=== PATIENT | male | born 1975 | race Caucasian/White ===

== ENCOUNTER 2017-09-14 08:58 | Day surgery (SDC) | payer BC ==
[~2017-09-14 08:58] MED LIST: ATROPINE 1 MG/10 ML SYRINGE IV; DIPHENHYDRAMINE 50 MG INJ IV; EPHEDrine SULFATE 50 MG/5 ML SYG IV; FENTAnyl 50 MCG/ML VIAL IV; HYDROmorphONE (0.2 MG/ML) 10ML SYG IV; LABETALOL HCL 20MG INJ IV; MEPERIDINE 25 MG INJ IV; MIDAZOLAM 1 MG/ML 2 ML INJ IV; ONDANSETRON 4 MG INJ IV; OXYCODONE/ACETAMINOPHEN (5/325) TAB PO; hydrALAzine 20 MG INJ IV; morphine (1 MG/ML) 10ML SYRINGE IV
[2017-09-14] MEDS ORDERED: LIDOCAINE 1% (MPF) 30 ML INJ (11:35)
[2017-09-14] MEDS ORDERED: BUPIVACAINE 0.5% (SDV) 30 ML INJ (11:35)
[2017-09-14] MEDS: POLYMYXIN/BACITRACIN 1L IRRIG IRR (12:23)
[2017-09-14] MEDS ORDERED: POLYMYXIN/BACITRACIN 1L IRRIG (14:26)
[2017-09-14] MEDS: OXYCODONE/ACETAMINOPHEN (5/325) TAB PO (15:17)
== END 2017-09-14 16:30 | disposition home or self-care (01) ==
LOC: SDS 08:58
DX: S62.623B Displaced fracture of middle phalanx of left middle finger, initial encounter for open fracture (principal); S64.02XA Injury of ulnar nerve at wrist and hand level of left arm, initial encounter; S66.123A Laceration of flexor muscle, fascia and tendon of left middle finger at wrist and hand level, initial encounter; S64.22XA Injury of radial nerve at wrist and hand level of left arm, initial encounter; X58.XXXA Exposure to other specified factors, initial encounter; Y93.89 Activity, other specified
CPT/HCPCS: 26356; 73140

== ENCOUNTER 2017-12-07 12:00 | Day surgery (SDC) | payer BC ==
[~2017-12-07 12:00] MED LIST changes: -ATROPINE 1 MG/10 ML SYRINGE IV; +CEFAZOLIN 2 GM/50 ML (PMX) 50 ML IVPB; -DIPHENHYDRAMINE 50 MG INJ IV; -EPHEDrine SULFATE 50 MG/5 ML SYG IV; -FENTAnyl 50 MCG/ML VIAL IV; -HYDROmorphONE (0.2 MG/ML) 10ML SYG IV; -LABETALOL HCL 20MG INJ IV; +LACTATED RINGER'S 1,000 ML IV*; -MEPERIDINE 25 MG INJ IV; -MIDAZOLAM 1 MG/ML 2 ML INJ IV; -ONDANSETRON 4 MG INJ IV; -OXYCODONE/ACETAMINOPHEN (5/325) TAB PO; -hydrALAzine 20 MG INJ IV; -morphine (1 MG/ML) 10ML SYRINGE IV
[2017-12-07] MEDS ORDERED: LIDOCAINE 1% (MPF) 30 ML INJ (15:41)
[2017-12-07] MEDS ORDERED: LIDOCAINE 2% (SDV) 5 ML INJ (15:59)
[2017-12-07] MEDS ORDERED: PROPOFOL 20 ML (15:59)
[2017-12-07] MEDS ORDERED: CEFAZOLIN 1 GM INJ (15:59)
[2017-12-07] MEDS ORDERED: MEPERIDINE /PF (100 MG/2 ML) AMPULE (16:13)
[2017-12-07] MEDS: BUPIVACAINE 0.5% (SDV) 30 ML INJ (16:39)
[2017-12-07] MEDS ORDERED: MEPERIDINE 25 MG INJ IV ×2 (17:30)
[2017-12-07] MEDS ORDERED: ONDANSETRON 4 MG INJ IV ×2 (17:30)
[2017-12-07] MEDS ORDERED: FENTAnyl 50 MCG/ML VIAL IV ×6 (17:30)
[2017-12-07] MEDS ORDERED: OXYCODONE/ACETAMINOPHEN (5/325) TAB PO ×3 (17:30)
[2017-12-07] MEDS ORDERED: DIPHENHYDRAMINE 50 MG INJ IV ×2 (17:30)
[2017-12-07] MEDS ORDERED: METOCLOPRAMIDE 10 MG INJ IV ×2 (17:30)
[2017-12-07] MEDS ORDERED: MIDAZOLAM 1 MG/ML 2 ML INJ IV ×2 (17:30)
[2017-12-07] MEDS ORDERED: ONDANSETRON 4 MG INJ (17:48)
[2017-12-07] MEDS: OXYCODONE/ACETAMINOPHEN (5/325) TAB PO (19:04)
== END 2017-12-07 19:30 | disposition home or self-care (01) ==
LOC: SDS 12:00
DX: S64.493 Injury of digital nerve of left middle finger (principal); X58.XXXD Exposure to other specified factors, subsequent encounter
CPT/HCPCS: 64912